=== PATIENT | female | born 2000 | race Caucasian/White ===

== ENCOUNTER 2023-05-28 07:04 | Inpatient (IN) | payer OTHER, MEDICAID ==
[2023-05-28] VITALS (17 sets, daily range): BP systolic 103–136; PULSE 60–138; RESP 16–50; TEMP 96.8–101.7; O2SAT 98–100
[~2023-05-28] VITALS: Ht 160 cm; Wt 45.4 kg
[2023-05-28] MEDS: PIPERACILLIN/TAZO 4.5 GM in NS 100 ML IV ONE (07:15)
[2023-05-28] MEDS: LORazepam 2 MG/ML VIAL IVP ONE ×2 (07:33→09:35)
[2023-05-28] MEDS ORDERED: LORazepam 2 MG/ML VIAL ONE ×2 (07:39→09:19)
[2023-05-28] MEDS ORDERED: ACETAMINOPHEN 650 MG SUPP.RECT RC ONE (07:54)
[2023-05-28 07:55] LABS: BILIRUBIN,URINE NEGATIVE (NEGATIVE); CLARITY/URINE CLEAR (CLEAR); COLOR,URINE YELLOW (YELLOW); GLUCOSE,URINE NEGATIVE (NEGATIVE); KETONES,URINE TRACE (NEGATIVE); LEUKOCYTE ESTERASE ,URINE NEGATIVE (NEGATIVE); NITRITE, URINE NEGATIVE (NEGATIVE); PH,URINE 6.5 (5.0-8.0); PROTEIN URINE 2+ (NEGATIVE); UROBILINOGEN,URINE 0.2 (0.2-1.0)
[2023-05-28 08:00] LABS: BASOPHILS % (AUTO) 0.2 % (0.0-2.0); EOSINOPHILS # (AUTO) 0.1 K/uL (0.0-0.4); EOSINOPHILS % (AUTO) 0.4 % (0.0-4.0); HEMATOCRIT 34.6 % (36-48); HEMOGLOBIN 11.3 g/dL (12.0-16.0); LYMPHOCYTES # (AUTO) 1.2 K/uL (1.0-5.5); LYMPHOCYTES % (AUTO) 7.8 % (20.5-51.5); MEAN CORPUSCULAR HEMOGLOBIN 27 pg (27-31); MEAN CORPUSCULAR HGB CONC 33 % (32-36); MEAN CORPUSCULAR VOLUME 81 fL (79.0-98.0); MONOCYTES # (AUTO) 0.9 K/uL (0.0-1.0); MONOCYTES % (AUTO) 6.2 % (1.7-9.3); NEUTROPHILS # (AUTO) 12.8 K/uL (1.8-7.7); NEUTROPHILS % (AUTO) 85.4 % (40.0-70.0); PLATELET COUNT (AUTO) 392 K/uL (130-430); RED BLOOD CELL COUNT(AUTO) 4.26 MIL/uL (4.2-6.2); RED CELL DISTRIBUTION WIDTH 16.6 % (9.0-15.0)
[2023-05-28] MEDS ORDERED: DIPHENHYDRAMINE INJ 50 MG/ML VIAL ONE (08:01)
[2023-05-28] MEDS ORDERED: HALOPERIDOL LACTATE 5 MG/ML VIAL ONE (08:01)
[2023-05-28 08:08] LABS: BLOOD, URINE TRACE (NEGATIVE)
[2023-05-28 08:14] LABS: BACTERIA,URINE FEW /HPF (None Seen); CALCIUM OXALATE CRYSTALS,UR None Seen /HPF (None Seen); CALCIUM PHOSPHATE CRYSTALS,UR None Seen /HPF (None Seen); HYALINE CASTS, URINE 0-10 /LPF (None Seen); OTHER CRYSTALS,URINE None Seen /HPF (None Seen); RBC,URINE 0-3 /HPF (0-3); TRICHOMONAS,URINE None Seen /HPF (None Seen); TRIPLE PHOSPHATE CRYSTAL,UR None Seen /HPF (None Seen); URIC ACID CRYSTALS,URINE None Seen /HPF (None Seen); URINE AMORPHOUS PHOSPHATES None Seen /HPF (None Seen); URINE AMORPHOUS URATE None Seen /HPF (None Seen); YEAST,URINE None Seen /HPF (None Seen)
[2023-05-28 08:15] LABS: COARSE GRANULAR CASTS,URINE None Seen /LPF (None Seen); FINE GRANULAR CASTS,URINE None Seen /LPF (None Seen); MUCUS,URINE 1+ /LPF (None Seen); OTHER CASTS, URINE MIXED CELL CASTS 1+ /LPF (None Seen); WAXY CASTS,URINE None Seen /LPF (None Seen)
[2023-05-28 08:21] LABS: BARBITURATE, URINE NEGATIVE (NEG <=200); URINE AMPHETAMINE POSITIVE (NEG <=500)
[2023-05-28 08:22] LABS: BENZODIAZEPINE, URINE NEGATIVE (NEG <=150); CANNABINOID, URINE NEGATIVE (NEG <=50); COCAINE, URINE NEGATIVE (NEG <=150); METHAMPHETAMINES SCREEN,URINE POSITIVE (NEG <=500); OPIATE, URINE NEGATIVE (NEG <=100); PHENCYCLIDINE SCREEN,URINE POSITIVE (NEG <=25); UR TRICYCLIC ANTIDEPRESSANTS NEGATIVE (NEG <=300); URINE METHADONE NEGATIVE (NEG <=200); URINE OXYCODONE SCREEN NEGATIVE (NEG <=100)
[2023-05-28 08:28] LABS: PROTHROMBIN TIME 10.1 SECS (9.5-12.5)
[2023-05-28] MEDS ORDERED: MIDAZOLAM HCL 2 MG/2 ML VIAL (VERSED) ONE (08:28)
[2023-05-28] MEDS ORDERED: PIPERACILLIN/TAZOBACTAM 4.5 GM/VIAL (ZOSYN) IV ONE (08:35)
[2023-05-28] MEDS ORDERED: PROPOFOL DRIP 100 ML IV ONE (08:42)
[2023-05-28] MEDS: PROPOFOL DRIP 100 ML IV ONE (08:45)
[2023-05-28 08:59] LABS: ANION GAP 12 (5-15); CARBON DIOXIDE 26 mmol/L (23-29); CHLORIDE 111 mmol/L (98-107); CREATININE 1.17 mg/dL (0.55-1.30); GFR AFRICAN AMERICAN 68 mL/min (>90); GLUCOSE 80 mg/dL (74-106); POTASSIUM 3.7 mmol/L (3.5-5.1); SODIUM SERUM 149 mmol/L (136-145); UREA NITROGEN, BLOOD 16 mg/dL (8-21)
[2023-05-28 09:01] LABS: GFR NON AFRICAN-AMERICAN 56 mL/min (>90)
[2023-05-28 09:09] LABS: ALANINE AMINOTRANSFERASE 55 U/L (12-78); ALBUMIN 3.5 g/dL (3.4-4.8); ASPARTATE AMINOTRANSFERASE 89 U/L (10-37); BILIRUBIN,DIRECT 0.1 mg/dL (0.0-0.3); HCG,QUANTITATIVE 0 mIU/ML (0-6); SALICYLATE 1 mg/dL (3-30); TOTAL BILIRUBIN 0.6 mg/dL (0.0-1.0); TOTAL PROTEIN, SERUM 7.1 g/dL (6.4-8.3)
[2023-05-28 09:10] LABS: ACETAMINOPHEN < 1 ug/mL (1-30); ALCOHOL, BLOOD < 3 mg/dL (<10)
[2023-05-28] MEDS: ACETAMINOPHEN 650 MG SUPP.RECT RC ONE (09:10)
[2023-05-28] MEDS: NACL 0.9% 1,000 ML IV ONE ×2 (09:11→09:12)
[2023-05-28] MEDS ORDERED: NALOXONE HCL 2 MG/2 ML SYR ONE (09:13)
[2023-05-28] MEDS ORDERED: ATROPINE SULFATE 0.4 MG/ML VIAL ONE (09:36)
[2023-05-28 09:37] LABS: ABG O2 SAT% ESTIMATE 99.8 % (94.0-100.0); BLOOD GAS BASE EXCESS -0.9 mmol/L (-3.0-3.0); BLOOD GAS HCO3 22.8 mmol/L (21.0-27.0); BLOOD GAS PCO2 35.1 mmHg (35.0-45.0); BLOOD GAS PO2 398.1 mmHg (75.0-100.0)
[2023-05-28 09:39] LABS: ALLEN'S TEST POSITIVE (P)
[2023-05-28 10:06] LABS: CKMB RELATIVE INDEX 1.3 (0.0-2.9); CREATINE KINASE MB 20.2 ng/mL (0-3.6)
[2023-05-28] MEDS ORDERED: ALBUTEROL SULFATE 0.083% 2.5 MG/3 ML VIAL.NEB INH PRN (10:30)
[2023-05-28] MEDS ORDERED: ONDANSETRON HCL 4 MG/2 ML VIAL IVP PRN (10:30)
[2023-05-28] MEDS ORDERED: ACETAMINOPHEN 325 MG TABLET PO PRN ×2 (10:30→12:45)
[2023-05-28] MEDS ORDERED: DOCUSATE SODIUM 100 MG CAPSULE PO PRN (10:30)
[2023-05-28] MEDS ORDERED: MORPHINE 2 MG/ML INJ. SYRINGE IVP PRN (10:30)
[2023-05-28] MEDS: ATROPINE SULFATE 0.4 MG/ML VIAL IVP ONE (10:30)
[2023-05-28] MEDS ORDERED: MAGNESIUM SULFATE 50 ML IV PRN (10:30)
[2023-05-28] MEDS ORDERED: POTASSIUM CHLORIDE 20 MEQ TABLET.ER PO PRN (10:30)
[2023-05-28] MEDS: VECURONIUM BROMIDE 10 MG/VIAL (NORCURON) IVP ONE (10:44)
[2023-05-28] MEDS: VANCOMYCIN HCL 1,000 MG in NS 250 ML IV ONE (11:00)
[2023-05-28] MEDS ORDERED: ETOMIDATE 20 MG/ 10 ML VIAL (AMIDATE) ONE (11:36)
[2023-05-28] MEDS ORDERED: SUCCINYLCHOLINE CHLORIDE 20 MG/ML(QUELICIN) ONE (11:36)
[2023-05-28] MEDS ORDERED: VECURONIUM BROMIDE 10 MG/VIAL (NORCURON) ONE (11:36)
[2023-05-28] MEDS ORDERED: VANCOMYCIN HCL 1000 MG/VIAL IV ONE (11:55)
[2023-05-28] MEDS: D5/0.45 NS 1,000 ML IV SCH (14:11)
[2023-05-28] MEDS: PIPERACILLIN/TAZO 3.375/DEX-IS 50 ML IV SCH (14:17)
[2023-05-28] MEDS: PROPOFOL DRIP 100 ML IV PRN (14:37)
[2023-05-28] MEDS ORDERED: HALOPERIDOL LACTATE 5 MG/ML VIAL IVP ONE (14:45)
[2023-05-28] MEDS ORDERED: DIPHENHYDRAMINE INJ 50 MG/ML VIAL IVP ONE (14:45)
[2023-05-28] MEDS: HALOPERIDOL LACTATE 5 MG/ML VIAL IM ONE (14:49)
[2023-05-28] MEDS: DIPHENHYDRAMINE INJ 50 MG/ML VIAL IVP ONE (14:49)
[2023-05-29] VITALS (34 sets, daily range): BP systolic 114–143; PULSE 45–93; RESP 16–18; TEMP 97.1–98.3; O2SAT 100
[2023-05-29 06:22] LABS: BASOPHILS % (AUTO) 0.4 % (0.0-2.0); EOSINOPHILS # (AUTO) 0.3 K/uL (0.0-0.4); EOSINOPHILS % (AUTO) 4.5 % (0.0-4.0); HEMATOCRIT 34.2 % (36-48); HEMOGLOBIN 11.2 g/dL (12.0-16.0); LYMPHOCYTES # (AUTO) 1.1 K/uL (1.0-5.5); LYMPHOCYTES % (AUTO) 19.8 % (20.5-51.5); MEAN CORPUSCULAR HEMOGLOBIN 27 pg (27-31); MEAN CORPUSCULAR HGB CONC 33 % (32-36); MEAN CORPUSCULAR VOLUME 82 fL (79.0-98.0); MONOCYTES # (AUTO) 0.6 K/uL (0.0-1.0); MONOCYTES % (AUTO) 9.6 % (1.7-9.3); NEUTROPHILS # (AUTO) 3.8 K/uL (1.8-7.7); NEUTROPHILS % (AUTO) 65.7 % (40.0-70.0); PLATELET COUNT (AUTO) 295 K/uL (130-430); RED BLOOD CELL COUNT(AUTO) 4.17 MIL/uL (4.2-6.2); RED CELL DISTRIBUTION WIDTH 17.2 % (9.0-15.0); WHITE BLOOD COUNT (AUTO) 5.7 K/uL (4.8-10.8)
[2023-05-29 06:25] LABS: CALCIUM 7.8 mg/dL (8.4-11.0); CREATININE 0.64 mg/dL (0.55-1.30)
[2023-05-29 06:28] LABS: POTASSIUM 2.6 mmol/L (3.5-5.1)
[2023-05-29] MEDS: POTASSIUM CHLORIDE 30 MEQ in NS 250 ML IV SCH (07:30)
[2023-05-29] MEDS: D5W 1,000 ML IV SCH (08:15)
[2023-05-29] MEDS ORDERED: PROPOFOL DRIP 100 ML IV ONE (09:00)
[2023-05-29] MEDS: MORPHINE 2 MG/ML INJ. SYRINGE IVP PRN (13:36)
[2023-05-29] MEDS: LORazepam 2 MG/ML VIAL IVP PRN (13:48)
[2023-05-29 20:22] LABS: CALCIUM 8.2 mg/dL (8.4-11.0); CREATININE 0.62 mg/dL (0.55-1.30)
[2023-05-29] MEDS: MUPIROCIN 2% TOPICAL OINTMENT 22 GM NS SCH (20:57)
[2023-05-30] VITALS (36 sets, daily range): BP systolic 112–155; PULSE 43–87; RESP 16–17; TEMP 97.9–98.3; O2SAT 99–100
[2023-05-30 06:21] LABS: BASOPHILS % (AUTO) 0.5 % (0.0-2.0); EOSINOPHILS # (AUTO) 0.4 K/uL (0.0-0.4); HEMATOCRIT 33.7 % (36-48); LYMPHOCYTES # (AUTO) 1.8 K/uL (1.0-5.5); LYMPHOCYTES % (AUTO) 28.3 % (20.5-51.5); MEAN CORPUSCULAR HEMOGLOBIN 27 pg (27-31); MEAN CORPUSCULAR HGB CONC 33 % (32-36); MEAN CORPUSCULAR VOLUME 83 fL (79.0-98.0); MONOCYTES # (AUTO) 0.8 K/uL (0.0-1.0); MONOCYTES % (AUTO) 12.6 % (1.7-9.3); NEUTROPHILS # (AUTO) 3.3 K/uL (1.8-7.7); NEUTROPHILS % (AUTO) 52.6 % (40.0-70.0); PLATELET COUNT (AUTO) 302 K/uL (130-430); RED BLOOD CELL COUNT(AUTO) 4.08 MIL/uL (4.2-6.2); RED CELL DISTRIBUTION WIDTH 17.6 % (9.0-15.0); WHITE BLOOD COUNT (AUTO) 6.3 K/uL (4.8-10.8)
[2023-05-30 07:10] LABS: CALCIUM 8.4 mg/dL (8.4-11.0); CREATININE 0.67 mg/dL (0.55-1.30)
[2023-05-30 09:16] LABS: CKMB RELATIVE INDEX 2.8 (0.0-2.9)
[2023-05-30] MEDS ORDERED: LORazepam 2 MG/ML VIAL IVP PRN (09:45)
[2023-05-30] MEDS: MAGNESIUM SULFATE 50 ML IV ONE (12:04)
[2023-05-30] MEDS: POTASSIUM CHLORIDE 40 MEQ, LIDOCAINE JECT 2% PF 100 MG 50 MG in NS 250 ML IV ONE (12:04)
[2023-05-30] MEDS: LORazepam 2 MG/ML VIAL IVP ONE (12:06)
[2023-05-31] VITALS (28 sets, daily range): BP systolic 92–161; PULSE 39–75; RESP 14–18; TEMP 97.5–98.3; O2SAT 97–100
[2023-05-31 06:10] LABS: BASOPHILS % (AUTO) 0.6 % (0.0-2.0); EOSINOPHILS # (AUTO) 0.3 K/uL (0.0-0.4); HEMOGLOBIN 11.3 g/dL (12.0-16.0); LYMPHOCYTES # (AUTO) 1.8 K/uL (1.0-5.5); LYMPHOCYTES % (AUTO) 34.7 % (20.5-51.5); MEAN CORPUSCULAR HEMOGLOBIN 26 pg (27-31); MEAN CORPUSCULAR HGB CONC 32 % (32-36); MEAN CORPUSCULAR VOLUME 82 fL (79.0-98.0); MONOCYTES # (AUTO) 0.4 K/uL (0.0-1.0); MONOCYTES % (AUTO) 8.4 % (1.7-9.3); NEUTROPHILS # (AUTO) 2.7 K/uL (1.8-7.7); NEUTROPHILS % (AUTO) 51.3 % (40.0-70.0); PLATELET COUNT (AUTO) 325 K/uL (130-430); RED BLOOD CELL COUNT(AUTO) 4.29 MIL/uL (4.2-6.2); RED CELL DISTRIBUTION WIDTH 17.5 % (9.0-15.0); WHITE BLOOD COUNT (AUTO) 5.3 K/uL (4.8-10.8)
[2023-05-31 06:33] LABS: CALCIUM 8.4 mg/dL (8.4-11.0); CREATININE 0.51 mg/dL (0.55-1.30); POTASSIUM 3.5 mmol/L (3.5-5.1)
[2023-05-31] MEDS: LORazepam 2 MG/ML VIAL IVP PRN (09:25)
[2023-05-31] MEDS: DEXMEDETOMIDINE HCL 200 MCG/2 ML VIAL IV ONE (23:57)
[2023-06-01] VITALS (13 sets, daily range): BP systolic 98–124; PULSE 55–97; RESP 13–19; TEMP 97–97.9; O2SAT 97–99
[2023-06-01 06:56] LABS: BASOPHILS % (AUTO) 0.5 % (0.0-2.0); EOSINOPHILS # (AUTO) 0.1 K/uL (0.0-0.4); EOSINOPHILS % (AUTO) 2.3 % (0.0-4.0); HEMATOCRIT 32.7 % (36-48); LYMPHOCYTES % (AUTO) 37.8 % (20.5-51.5); MEAN CORPUSCULAR HEMOGLOBIN 27 pg (27-31); MEAN CORPUSCULAR HGB CONC 34 % (32-36); MONOCYTES # (AUTO) 0.4 K/uL (0.0-1.0); MONOCYTES % (AUTO) 6.8 % (1.7-9.3); NEUTROPHILS # (AUTO) 2.7 K/uL (1.8-7.7); NEUTROPHILS % (AUTO) 52.6 % (40.0-70.0); PLATELET COUNT (AUTO) 324 K/uL (130-430); RED BLOOD CELL COUNT(AUTO) 4.07 MIL/uL (4.2-6.2); RED CELL DISTRIBUTION WIDTH 17.5 % (9.0-15.0); WHITE BLOOD COUNT (AUTO) 5.2 K/uL (4.8-10.8)
[2023-06-01 07:14] LABS: CALCIUM 8.2 mg/dL (8.4-11.0); CREATININE 0.6 mg/dL (0.55-1.30); POTASSIUM 3.3 mmol/L (3.5-5.1)
[2023-06-01 07:59] LABS: MEAN CORPUSCULAR VOLUME 80 fL (79.0-98.0)
[2023-06-01] MEDS: D5W 1,000 ML IV SCH (10:46)
== END 2023-06-01 19:45 | disposition short-term general hospital (02) | DRG 917 ==
LOC: SED 07:04 → EDBD 10:26 → SIC 10:26
PROVIDERS: ADMIT Family Medicine; ATTEND Family Medicine
PROC: 5A1945Z Respiratory Ventilation, 24-96 Consecutive Hours (ICD-10-PCS; principal; 2023-05-28)
PROC: 0BH17EZ Insertion of Endotracheal Airway into Trachea, Via Natural or Artificial Opening (ICD-10-PCS; 2023-05-28)
PROC: 02HV33Z Insertion of Infusion Device into Superior Vena Cava, Percutaneous Approach (ICD-10-PCS; 2023-05-28)
PROC: B548ZZA Ultrasonography of Superior Vena Cava, Guidance (ICD-10-PCS; 2023-05-28)
DX: T50.991A Poisoning by other drugs, medicaments and biological substances, accidental (unintentional), initial encounter (principal); G92.8 Other toxic encephalopathy; J96.01 Acute respiratory failure with hypoxia; M62.82 Rhabdomyolysis; E87.0 Hyperosmolality and hypernatremia; N17.9 Acute kidney failure, unspecified; F19.10 Other psychoactive substance abuse, uncomplicated; D64.9 Anemia, unspecified; Z20.822 Contact with and (suspected) exposure to COVID-19; Y92.89 Other specified places as the place of occurrence of the external cause
CPT/HCPCS: 36415; 36600; 70450-TC; 71045; 80048; 80076; 80307; 81000; 81001; 81015; 82550; 82553; 82803; 83605; 83735; 83874; 84484; 84702; 85025; 85610; 85730; 87040; 87070; 87081; 87205; 93005; 94002; 94003; 94640; 96365; 96375; 99291; G0480; G0481; G0482; J0330; J0461; J1200; J1630; J2060; J2270; J2310; J2543; J2704; J3370; J3465; J3475; J3480; J3490; J7050